=== PATIENT | male | born 1960 | race Caucasian/White ===

== ENCOUNTER → 2024-01-25 14:13 | Outpatient (REF) | payer OTHER, SELFPAY ==
[2024-01-25 15:39] LABS: PSA, Total - Diagnostic < 0.06 ng/ml (0.0-4.0)
== END ==
LOC: REG 14:13
PROVIDERS: ATTENDING PHYSICIAN Specialist
DX: C61 Malignant neoplasm of prostate (principal); N39.0 Urinary tract infection, site not specified
CPT/HCPCS: 36415; 84153

== ENCOUNTER → 2024-02-11 12:38 | Outpatient (REF) | payer OTHER, SELFPAY | LOC: CLAB 12:38 | PROVIDERS: ATTENDING PHYSICIAN Specialist | DX: N39.0 Urinary tract infection, site not specified (principal) | CPT/HCPCS: 87086 ==

== ENCOUNTER → 2024-04-29 12:13 | Outpatient (REF) | payer OTHER, SELFPAY ==
[2024-04-29 13:57] LABS: PSA, Total - Diagnostic < 0.06 ng/ml (0.0-4.0)
== END ==
LOC: REG 12:13
PROVIDERS: ATTENDING PHYSICIAN Specialist
DX: C61 Malignant neoplasm of prostate (principal)
CPT/HCPCS: 36415; 84153

== ENCOUNTER → 2024-07-30 09:10 | Outpatient (REF) | payer OTHER, SELFPAY ==
[2024-07-30 09:54] LABS: % Basophils 0.8 % (0-2); % Eosinophils 1.9 % (0-6); % Immature Granulocytes 0.4 % (0-0.5); % Lymphocytes 22.5 % (20.5-51.1); % Monocytes 8.3 % (1.7-9.3); % Neutrophils 66.1 % (42.2-75.2); Absolute Basophils 0.1 10^3/uL (0-0.2); Absolute Eosinophils 0.2 10^3/uL (0-0.7); Absolute Lymphocytes 1.7 10^3/uL (1.2-3.4); Absolute Monocytes 0.6 10^3/uL (0.1-0.6); Absolute Neutrophils 5.1 10^3/uL (1.4-6.5); Hematocrit 42.8 % (39.0-52.0); Hemoglobin 13.5 g/dL (13.0-18.0); Mean Corp Hgb Conc. 31.5 g/dL (33.0-37.0); Mean Corpuscular Volume 82.3 fL (80.0-94.0); Mean Platelet Volume 10.8 fL (7.4-10.4); Nucleated Red Blood Cells % 0 % (-); Platelet Count 218 10^3/uL (130-400); Red Cell Dist. Width 15.8 % (11.5-14.5); White Blood Cell Count 7.8 10^3/uL (4.8-10.8)
[2024-07-30 12:26] LABS: ALT (SGPT) 23 U/L (0-50); AST (SGOT) 31 U/L (17-59); Albumin 4.1 g/dl (3.5-5.0); Alkaline Phosphatase 112 U/L (38-126); Blood Urea Nitrogen 24 mg/dl (9-20); Calcium 9.9 mg/dl (8.4-10.2); Carbon Dioxide 24 mmol/L (22-30); Chloride 104 mmol/L (98-107); Glucose 107 mg/dl (70-99); HDL Cholesterol 56 mg/dl; LDL Cholesterol, Calculated 71 mg/dl; Potassium 4.5 mmol/L (3.5-5.1); Sodium 143 mmol/L (135-145); Total Bilirubin 1.1 mg/dl (0.2-1.3); Total Cholesterol 142 mg/dl (50-199); Total Protein 6.9 g/dl (6.3-8.2); Triglyceride 77 mg/dl (10-149); Very Low Density Lipoprotein 15 mg/dl (0-30); eGFR > 60.00
[2024-07-30 12:41] LABS: Glycohemoglobin (HgbA1c) 5.9 % (4.0-5.6)
[2024-07-30 13:24] LABS: PSA, Total - Diagnostic 0.17 ng/ml (0.0-4.0)
== END ==
LOC: REG 09:10
PROVIDERS: ATTENDING PHYSICIAN Physician Assistant; REFERRING PHYSICIAN Specialist
DX: R73.03 Prediabetes (principal); I25.118 Atherosclerotic heart disease of native coronary artery with other forms of angina pectoris; E78.5 Hyperlipidemia, unspecified; I10 Essential (primary) hypertension; D64.9 Anemia, unspecified
CPT/HCPCS: 36415; 80053; 80061; 83036; 84153; 85025

== ENCOUNTER → 2024-09-04 16:14 | Outpatient (REF) | payer OTHER, SELFPAY ==
[2024-09-04 17:52] LABS: PSA, Total - Diagnostic 0.35 ng/ml (0.0-4.0)
== END ==
LOC: REG 16:14
PROVIDERS: ATTENDING PHYSICIAN Specialist; FAMILY PHYSICIAN Family Medicine
DX: C61 Malignant neoplasm of prostate (principal)
CPT/HCPCS: 36415; 84153

== ENCOUNTER → 2024-10-09 17:15 | Outpatient (REF) | payer OTHER, SELFPAY ==
[2024-10-09 18:30] LABS: PSA, Total - Diagnostic 0.07 ng/ml (0.0-4.0)
== END ==
LOC: REG 17:15
PROVIDERS: ATTENDING PHYSICIAN Specialist; FAMILY PHYSICIAN Family Medicine
DX: C61 Malignant neoplasm of prostate (principal)
CPT/HCPCS: 36415; 84153

== ENCOUNTER → 2024-10-28 08:34 | Outpatient (REF) | payer OTHER, SELFPAY ==
--- NOTE | 2024-10-28 09:31 | CARDSERVDEF ---
Echocardiogram with Definity completed after protocol screening completed. Allergies verified.
Patent IV site: __new start 22P LH___
IV site flushed with 0.9% NaCl pre and post administration.
Diluted bolus method utilized to enhance visualization of ventricular baltazar.
Total volume given: __3.0 and 2.5__ mL under direction echosonographer,
here for stress echo, walking on treadmill, images pre and post.
site dcd at completion of test.
Patient tolerated all procedures well without complications.
== END ==
LOC: RCS 08:34
PROVIDERS: ATTENDING PHYSICIAN Internal Medicine Cardiovascular Disease; FAMILY PHYSICIAN Family Medicine
DX: Z95.5 Presence of coronary angioplasty implant and graft (principal)
CPT/HCPCS: 93017; 93350; Q9957

== ENCOUNTER 2024-11-06 16:19 | Inpatient (IN) | payer OTHER, MEDICARE, SELFPAY ==
[2024-11-06 12:02] VITALS: BP 170/103
[2024-11-06 12:20] VITALS: BP 165/95; BMI 38.8
--- NOTE | 2024-11-06 12:20 | EDRN ---
Pt states he had awoke at 5:00 am w/ floaters across his R eye visual field. Pt went to work and developed a prado spot in upper L visual field of R eye.
--- NOTE | 2024-11-06 12:28 | EDRN ---
Yuri Ayala PA in room w/ pt at this time.
[2024-11-06 12:34] LABS: % Basophils 0.3 % (0-2); % Immature Granulocytes 0.3 % (0-0.5); % Neutrophils 67.4 % (42.2-75.2); Absolute Eosinophils 0.1 10^3/uL (0-0.7); Absolute Monocytes 0.7 10^3/uL (0.1-0.6); Absolute Neutrophils 5.8 10^3/uL (1.4-6.5); Hemoglobin 13.5 g/dL (13.0-18.0); Mean Corp Hgb Conc. 31.4 g/dL (33.0-37.0); Mean Corpuscular Hgb 26.4 pg (27.0-31.0); Mean Platelet Volume 10.1 fL (7.4-10.4); Nucleated Red Blood Cells % 0 % (-); Platelet Count 215 10^3/uL (130-400); Red Blood Cell Count 5.12 10^6/uL (4.70-6.10); Red Cell Dist. Width 14.6 % (11.5-14.5); White Blood Cell Count 8.7 10^3/uL (4.8-10.8)
[2024-11-06 12:44] LABS: Erythrocyte Sed Rate 23 mm/hour (0-20)
[2024-11-06 12:50] LABS: Blood Urea Nitrogen 19 mg/dl (9-20); Calcium 9.5 mg/dl (8.4-10.2); Carbon Dioxide 27 mmol/L (22-30); Chloride 104 mmol/L (98-107); Estimated Creatinine Clearance 83 ml/min; Glucose 104 mg/dl (70-99); HDL Cholesterol 51 mg/dl; LDL Cholesterol, Calculated 62 mg/dl; Sodium 141 mmol/L (135-145); Total Cholesterol 129 mg/dl (50-199); Triglyceride 81 mg/dl (10-149); Very Low Density Lipoprotein 16 mg/dl (0-30); eGFR > 60.00
--- NOTE | 2024-11-06 12:51 | ED.GENMED ---
History of Present Illness
General
Chief Complaint: Visual Problem
Source: patient
Time Seen by Provider: 11/06/24 12:09
History of Present Illness
History of Present Illness:
64-year-old male with past medical history of previous myocardial infarction, hypertension, hyperlipidemia, prostate cancer presenting to the emergency department for evaluation after he was seen at the dialysis technician office this morning after he
awoke yesterday at 7:30 AM with right eye visual disturbance describing the visual disturbance to be a angulated area of roe/black at the superior medial visual field of the right eye. Patient states that when he closes his eye it is more of a
yellowish color to the same area. He notes that this visual disturbance has been constant since 7:30 AM yesterday and has not changed. Patient takes a daily 81 mg aspirin combined with high-dose statin and Jardiance. He does report good
compliance with this. No other blood thinners. Denies any other symptoms.
Past History
Past History
ED Past Medical History: Cancer, HTN, Hypercholesterolemia, MD and Other (BPH); Negative CAD
ED Past Surgical History: Appendectomy, Orthopedic and Urological
Social History
Tobacco: Non-smoker
Alcohol: Occasional
Drug: None
Personal:
Living: with family
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
Family History
Family History: Hypertension
Review of Systems
Review of Systems
All Other Systems: ROS reviewed and negative except as documented in HPI and ROS
Phy Exam
Physical Exam
Physical Exam:
GENERAL: Alert , in no apparent distress
EYE: pupils equal and reactive, clear conjunctiva
NECK: Supple
ENT: o/p clr, mmm.
CARDIAC: Regular rate and rhythm .
LUNGS: Clear breath sounds bilaterally, no acute respiratory distress, no wheezes/rales/rhonchi
NEUROLOGICAL: Alert and oriented x 3, NOLAN x 4, no sensory deficits, no aphasia, no dysarthria, no dysmetria, ambulates with steady gait
SKIN: Warm and dry, skin intact.
MUSCULOSKELETAL: No edema, well perfused.
PSYCH: Normal and appropriate interaction.
Scores
Heart Failure Risk
Heart Failure Risk Score: Not Applicable
Heart Score for Chest Pain Patients
STEMI patient?: Not applicable
Withdrawal Assessment of Alcohol
Withdrawal Assessment Completed?: Not applicable
Course
Orders/Labs/Results
Orders:
Orders
11/06/24 12:10
Electrocardiogram (*1) Urgent
Reason for Study: TIA/Stroke
EKG- Treatment ONCE
11/06/24 12:25
Basic Metabolic Panel Urgent
CRP [C-Reactive Protein] Urgent
Complete Blood Count/With Diff Urgent
ESR [Erythrocyte Sed Rate] Urgent
Hemoglobin A1c [Glycohemoglobin (HgbA1c)] Urgent
Lipid Profile [Cardiovascular Evaluation] Urgent
11/06/24 12:41
CT Head & Neck Angio W/wo IV Urgent
Comment:
Reason For Exam: known right central retinal artery occlusion
CT Head W/o Iv Contrast Urgent
Comment:
Reason For Exam: known right central retinal artery occlusion
11/06/24 12:43
Diphenhydramine [Benadryl] 50 mg IV NOW STA
Hydrocortisone Sod Succinate [Solu-Cortef] 200 mg IV NOW STA
11/06/24 Dinner
1800 calorie (15 carb) Diabetic
At Your Request: Full Participation
Diabetic Diet: Cholesterol Lowering
11/06/24 15:05
MR Brain Without Contrast Routine
Comment:
Reason For Exam: Visual impairment
OK for patient to be off Cardiac Monitoring for MRI: No
Recent pill cam endoscopy?: No
11/06/24 15:06
Clopidogrel Bisulfate [Plavix] 75 mg PO NOW STA
11/06/24 15:48
Admit/Transfer Patient As Directed
Co-Sign Provider:
Level of Care: Inpatient admission
Assign to:: Telemetry
Physician / Group: Iliana Cage
Diagnosis: eye central retinal artery occlusion, 70% or greater stenosis on bilateral
Reason for Telemetry: CVA/TIA
Date to Stop Telemetry: 11/09/24
Time to Stop Telemetry: 11:00
Reason for Hospitalization: eye central retinal artery occlusion, 70% or greater stenosis on bilateral
Expected length of stay greater than two midnights?: Yes
ELOS- Estimated Length of Stay in days: 3
I certify the patient meets the requirements for IP care: Yes
PRN Pain Medication Management As Directed
May give lesser potent ordered pain med per pt: Yes
preference::
Protocol:: Medication orders for pain may be administered in a
manner that supports deferring to patient preference
when the pt is:
- Requesting an ordered lesser potent pain medication.
Least to most potent pain medications are defined
as: acetaminophen < NSAID < tramadol < opioids
(morphine, oxycodone, hydromorphone).
- Requesting a lesser dose of the same medication IF
ORDERED.
- Requesting a less intrusive route of administration
if both routes are prescribed by the provider (PO <
IV).
11/06/24 15:50
Code Status As Directed
Resuscitation Status: Full Code
11/06/24 16:00
Pramipexole [Mirapex] 0.125 mg PO NOW ONE
11/06/24 18:11
Atorvastatin [Lipitor] 40 mg PO QPM
Bicalutamide [Casodex] 50 mg PO QPM
Metoprolol Xl [Toprol Xl] 50 mg PO QPM
11/06/24 18:11
NEUROLOGY CONSULT Routine
Consulting Provider: Jeanne Patricio
Was physician already notified: Yes
Vascular Surgery Consult Routine
Consulting Provider: Oliver Rea
Was physician already notified: Yes
Ferritin Routine
Transferrin [S] Routine
Activity As Directed
Activity Level: Out of Bed-Early Mobility
Pneumatic Compression Sleeves As Directed
Type: Knee high
Vital Signs As Directed
Frequency: Per unit guidelines
DX Deep Vein Thrombosis Video Routine
11/07/24 06:47
Basic Metabolic Panel IN AM
Complete Blood Count/No Diff IN AM
11/07/24 08:00
Aspirin Chewable [Low Strength Aspirin] 81 mg PO DAILY
Dapagliflozin [Farxiga] 10 mg PO DAILY
Finasteride [Proscar] 5 mg PO Q48H
Multivitamin [Theragran] 1 tablet PO DAILY
Pantoprazole [Protonix] 40 mg PO DAILY
Pramipexole [Mirapex] 0.125 mg PO DAILY
tadalafil See Dose Instructions PO DAILY
11/08/24 06:37
Basic Metabolic Panel IN AM
Complete Blood Count/No Diff IN AM
11/08/24 08:00
Ferrous Sulfate [Feosol] 325 mg PO Q48H
semaglutide (weight loss) [Wegovy] 0.5 mg SC SA
Abnormal Lab Results
11/06/24
12:25
MCH 26.4 L pg
(27.0-31.0)
MCHC 31.4 L g/dL
(33.0-37.0)
RDW 14.6 H %
(11.5-14.5)
Absolute Monos (auto) 0.7 H 10^3/uL
(0.1-0.6)
ESR 23 H mm/hour
(0-20)
Glucose 104 H mg/dl
(70-99)
Hemoglobin A1c 5.7 H %
(4.0-5.6)
C-Reactive Protein 20.50 H mg/L
(0.0-10.00)
11/06/24 12:25
11/06/24 12:25
Vital Signs
Initial and Last Documented VS:
Initial Vital Signs
Temp Pulse Resp BP Pulse Ox
97.7 F 79 18 170/103 97
11/06/24 12:02 11/06/24 12:02 11/06/24 12:02 11/06/24 12:02 11/06/24 12:02
Last Documented Vital Signs
Temp Pulse Resp BP Pulse Ox
97.9 F 97 16 170/94 95
11/08/24 15:45 11/08/24 15:45 11/08/24 15:45 11/08/24 15:45 11/08/24 15:45
MDM/Problems Addressed
MDM/Problems Addressed:
64-year-old male presenting to the emergency department for evaluation after being diagnosed with right sided central retinal artery occlusion by ophthalmology earlier today. Symptoms have already been ongoing for at least greater than 24 hours so
patient is not a thrombectomy or TNK candidate. Patient is on a daily 81 mg aspirin and maxed out on a statin. Patient may need to have increased aspirin and temporary Plavix dosing. Will discuss with neurology for further evaluation. Anticipate
need for further imaging such as CTA of the head and neck which may alter patient's treatment plan if there is significant stenosis within the vasculature of the neck. Disposition pending
Chronic conditions affecting care: DM and HTN
*Radiology
Radiology exam reviewed: radiology read reviewed
*Pulse Oximetry
Patient hypoxic: no
*EKG
Interpreted by ED Provider?: Yes
Heart Rate: 73
Rate: normal
Rhythm: sinus
Ischemia: other (old inferior infarct)
*Identity Management Consultant Interpretation
Rate: normal
Rhythm: sinus
*Critical Care Note
Total Time (30-74mins, 75-104mins- exclusive of procedures): Not Applicable
Patient Management
Discussion with other providers: Hospitalist, Roll Shop Supervisor and Radiologist
Escalation/DeEscalation of care consider admission/obs:
Case discussed with neurology who recommends CTA of the head and neck. They will consult on the patient.
Notified by radiology that patient has no acute intracranial findings however there is heavily calcified carotid bulb plaque on each side with greater than 70% stenosis as well. Neurology notified of these findings. Vascular to be notified of
these findings So they can consult on the patient. Hospitalist team accepts for continued evaluation and treatment.
ED Attending Note
-
Portions of this chart may have been created with voice recognition software.� Occasional wrong word or��sound alike� substitutions may have occurred due to the inherent limitations of voice recognition software.
Discharge Plan
Departure
Patient Disposition: Admit
Date of Disposition: 11/06/24
Time of Disposition: 14:59
Presentation/result/management discussed w/ accepting MD/DO: Hospitalist
Discharge Problem:
Central retinal artery occlusion of right eye
Interventions
Interventions:
*Risk Screen - Suicide Last Done: 11/06/24 12:20
*General Assessment Last Done: 11/06/24 12:20
*Neglect/Abuse Screening Last Done: 11/06/24 12:20
ED- Fall Risk Assessment Last Done: 11/06/24 12:20
*ED COVID-19 Vaccine History Last Done: 11/06/24 12:20
*Nursing Disposition Last Done: 11/06/24 17:59
ED-EENT Assessment Last Done: 11/06/24 13:55
ED- Neurological Assessment Last Done: 11/06/24 17:15
ED Swallowing Screen Last Done: 11/06/24 12:43
Discharge Date and Time
Discharge Date/Time: 11/06/24 18:00
[2024-11-06 13:00] VITALS: BP 153/90
[2024-11-06] MEDS: BENADRYL 50 MG IV (13:00)
[2024-11-06] MEDS: SOLU-CORTEF 200 MG IV (13:00)
[2024-11-06 13:10] VITALS: BP 153/85
[2024-11-06 14:23] LABS: Glycohemoglobin (HgbA1c) 5.7 % (4.0-5.6)
--- NOTE | 2024-11-06 14:48 | CON.NEURO ---
Consultation
Order
Date of Consultation: 11/06/24
Requesting Provider: Cory Ayala PA-C
Reason for Consult: R BRAO
Neurology Consultation Note.
HPI: This is a 64-year-old right-handed man who presented to [facility] on 11/06/2024 with visual symptoms. According to the patient he developed a sensation as 'something funny, like something moving,' in the median right upper
field in his right eye around 7:30-8:00 AM, a spot appeared, causing concern. The patient sought evaluation from an eye doctor and was referred to [facility], where he was diagnosed with the R BRAO. Mr. Abreu states that he has been
compliant with his antiplatelet therapy. No reports of headaches, motor, sensory, speech or language dysfunction.
He reports chronic frequent urge to move his legs worse in the evening.
ER VS: 140/78-170/103, 79, afebrile.
EKG: NSR, QTc Int : 429 ms
PDMP: none
Labs: CRP�20.50(0.0-10.00), ESR�23, glucose�104, hemoglobin A1c�5.7
CT head wo contrast-official report pending
CTA head/neck bilateral ICA stenosis (around 70%) official report is pending
PMH: Prostate cancer, iron deficiency, CAD, , HTN, DLP, MAGDI, ED, BMI 38.8 on Wegovy,
PSH:robotic prostatectomy, artificial urinary sphincter(6 weeks ago)
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
FH: Prostate cancer, coronary artery disease,
All: Sulfas, meperidine, iodine, ramipril,
ROS:Constitutional: Negative. Negative for chills, fever and unexpected weight change.
HENT: Negative for ear pain, hearing loss, tinnitus and trouble swallowing.
Eyes: Positive for visual disturbance.
Respiratory: Negative for cough, choking and shortness of breath.
Cardiovascular: Negative for chest pain, palpitations and leg swelling.
Gastrointestinal: Negative for abdominal pain and vomiting.
Endocrine: Negative. Negative for cold intolerance.
Genitourinary: Negative for dysuria, flank pain and urgency.
Musculoskeletal: Negative for back pain, gait problem, neck pain and neck stiffness.
Skin: Negative for rash.
Allergic/Immunologic: Negative. Negative for immunocompromised state.
Neurological: Positive for urge to move his legs in the evening,
Psychiatric/Behavioral: Negative for behavioral problems, confusion and hallucinations.
General: Well developed. In no acute distress.
Cardio: Regular rate and rhythm without murmur. Extremities are without cyanosis or edema.
Neuro:
Mental Status: Alert, oriented to person, place, and date. Normal attention and recall. Good fund of knowledge. Follows complex requests across the midline. Comprehension, naming, and repetition intact. Immediate and delayed recall 3/3.
Cranial Nerves: . Pupils are equally round and reactive to light. EOMs full. Visual otto full to confrontation. No ptosis. No nystagmus. V1-V3 intact to light touch and pinprick bilaterally, symmetric. Face symmetric. Normal hearing AU.
The palate elevated well. SCMs and traps 5/5. Tongue midline. No dysarthria.
Motor: Normal bulk and tone. No pronator or arm drift. Strength 5/5 throughout. No clonus.
Reflexes: 2+ throughout the upper extremities and knees. 2/2 in AJs. Plantar responses flexor bilaterally.
Sensory: Normal pinprick, vibration and JPS.
Coordination: No dysmetria or tremor.
Gait: deferred
Assessment and Plan:
I. R BRAO
II. Severe BL ICA stenosis
III.RLS
-Fall precaution
-Please obtain carotid Doppler ultrasound
-Brain MRI without anu
-Ophthalmology consult
-Continue aspirin 81 mg once a day and Plavix 75 mg once a day
-Please check LDL, ferritin, transferrin saturation
-Start Mirapex 0. 125 mg 3 hours before bedtime. -Moderate regular exercise, reduce caffeine intake, regular walking, bicycling, soaking the affected limbs, and leg massage, including pneumatic compression.
-Supplemental iron if ferritin is < 50 ng/mL or transferrin saturation is < 20%
-Avoid medications, known to worsen RLS symptoms (dopamine antagonists, antihistamines, tricyclic antidepressants and SSRIs/SSRIs)
-Continue Lipitor 80 mg once a day
-DVT prophylaxis.
I personally reviewed all radiology and labs along with past medical records pertinent to current medical problems. Total time spent in patient care is 60 minutes.
Thank you for allowing us to participate in the care of this patient. We will continue to follow. Please do not hesitate to contact us with any questions or concerns.
Subjective/Objective
Subjective Data
Date of Service: November 06, 2024
Objective Data
Vital Signs
Temp Pulse Resp BP Pulse Ox
36.5 C 77 12 153/85 97
11/06/24 12:02 11/06/24 13:15 11/06/24 13:15 11/06/24 13:10 11/06/24 13:45
Lab Results
11/06/24 12:25
11/06/24 12:25
Sodium 141 mmol/L (135-145) 11/06/24 12:25
Potassium 4.0 mmol/L (3.5-5.1) 11/06/24 12:25
BUN 19 mg/dl (9-20) 11/06/24 12:25
Glucose 104 mg/dl (70-99) H 11/06/24 12:25
Calcium 9.5 mg/dl (8.4-10.2) 11/06/24 12:25
LDL Cholesterol, Calc 62 mg/dl 11/06/24 12:25
Patient Allergies
Iodinated Contrast Media Allergy (Verified 11/06/24 12:02)
Hives
Sulfa (Sulfonamide Antibiotics) Allergy (Verified 11/06/24 12:02)
vomiting
sulfisoxazole Allergy (Verified 11/06/24 12:02)
vomiting
meperidine [Meperidine] Adverse Reaction (Verified 11/06/24 12:02)
'difficulty waking up'
Medications
-
Home Medications
�Medication �Instructions �Recorded
ferrous sulfate 325 mg (65 mg 325 mg PO Q48H Anemia/supplement 08/03/22
iron) tablet (Iron (ferrous
sulfate))
aspirin 81 mg chewable tablet 81 mg PO DAILY #0 tabs 08/04/22
atorvastatin 80 mg tablet 80 mg PO QPM #90 tabs 08/04/22
empagliflozin 25 mg tablet 25 mg PO DAILY 08/31/23
(Jardiance)
metoprolol succinate 50 mg 50 mg PO QPM 08/31/23
tablet,extended release 24 hr
naproxen sodium 220 mg tablet 220 mg PO DAILY 08/31/23
(Aleve)
tramadol 50 mg tablet 50 mg PO TID PRN severe pain #10 09/05/23
tabs
Vital Signs and Labs
-
Vital Signs and Labs:
Vital Signs
Temp Pulse Resp BP Pulse Ox
36.5 C 77 12 153/85 97
11/06/24 12:02 11/06/24 13:15 11/06/24 13:15 11/06/24 13:10 11/06/24 13:45
Lab Results
11/06/24 12:25
11/06/24 12:25
Sodium 141 mmol/L (135-145) 11/06/24 12:25
Potassium 4.0 mmol/L (3.5-5.1) 11/06/24 12:25
BUN 19 mg/dl (9-20) 11/06/24 12:25
Glucose 104 mg/dl (70-99) H 11/06/24 12:25
Calcium 9.5 mg/dl (8.4-10.2) 11/06/24 12:25
LDL Cholesterol, Calc 62 mg/dl 11/06/24 12:25
Home Medications
-
Home Medications
ferrous sulfate 325 mg (65 mg iron) tablet (Iron (ferrous sulfate)) 325 mg PO Q48H Anemia/supplement 08/03/22
aspirin 81 mg chewable tablet 81 mg PO DAILY #0 tabs 08/04/22
atorvastatin 80 mg tablet 80 mg PO QPM #90 tabs 08/04/22
empagliflozin 25 mg tablet (Jardiance) 25 mg PO DAILY 08/31/23
metoprolol succinate 50 mg tablet,extended release 24 hr 50 mg PO QPM 08/31/23
naproxen sodium 220 mg tablet (Aleve) 220 mg PO DAILY 08/31/23
tramadol 50 mg tablet 50 mg PO TID PRN severe pain #10 tabs 09/05/23
--- NOTE | 2024-11-06 15:03 | HPS.HSE ---
Family Physician
-
Family Physician: Yolande Martinez
Chief Complaint
-
Visual disturbance right eye
History of Present Illness
Patient is a 64-year-old male with past medical history significant for hypertension, hyperlipidemia, CAD, BPH and hx prostate cancer who presented to [facility] ED for evaluation of visual disturbance in right eye for past 2 days. Patient states
yesterday when he woke up he noticed angulated area of roe/black at the superior medial visiual field of right eye. Patient reports when eye is closed it is more of a yellowish/tanish color to same field of vision. He states he thought there was
improvement in sight yesterday evening but when he woke today it was the same. Yesterday he saw opthamology that did not have concerns. When he woke with continued disturbance today he sought a second opinion and was referred to ED for evaluation
and treatment. Patient denies any lightheadedness, weakness, numbness or tingling. Denies any fever, chills, chest pain, cough, or palpitations.
Medical History
Past Medical History
Past Medical History: Reports Other
Additional Past Medical History:
hypertension
hyperlipidemia
CAD
BPH
morbid obesity
hx prostate cancer
Past Surgical History: Reports Other
Additional Past Surgical History:
cardiac stent (07/2022)
appendectomy
urolume urethral stent (1997)
robotic radical prostatectomy and left LND (09/05/2023)
uroplasty (12/2023)
Social History
Tobacco: Non-smoker
Alcohol: None
Drug: None
Personal:
Living: With Family
Employment: Employed
Family History
Family History: Not pertinent
Allergies / Home Medications
Allergies reflects when Allergies were last updated in [facility].
Home Medications with original date entered in [facility]
Allergy/Medication List:
Allergies
Allergy/AdvReac Type Severity Reaction Status Date / Time
Iodinated Contrast Media Allergy Hives Verified 11/06/24 12:02
Sulfa (Sulfonamide Allergy vomiting Verified 11/06/24 12:02
Antibiotics)
sulfisoxazole Allergy vomiting Verified 11/06/24 12:02
meperidine [Meperidine] AdvReac 'difficulty Verified 11/06/24 12:02
waking up'
Home Medications
ferrous sulfate 325 mg (65 mg iron) tablet (Iron (ferrous sulfate)) 325 mg PO Q48H Anemia/supplement 08/03/22
metoprolol succinate 50 mg tablet,extended release 24 hr 50 mg PO QPM Heart Disease/BP 08/31/23
naproxen sodium 220 mg tablet (Aleve) 220 mg PO DAILY pain 08/31/23
aspirin 81 mg chewable tablet 81 mg PO DAILY Blood Pressure 11/06/24
atorvastatin 40 mg tablet (Lipitor) 40 mg PO QPM High Cholesterol 11/06/24
bicalutamide 50 mg tablet 50 mg PO QPM prostate cancer 11/06/24
dutasteride 0.5 mg capsule 0.5 mg PO Q48H Urinary Issue 11/06/24
empagliflozin 10 mg tablet (Jardiance) 10 mg PO DAILY Diabetes 11/06/24
omeprazole 20 mg tablet,delayed release 20 mg PO DAILY Gastrointestinal Issue 11/06/24
semaglutide (weight loss) 0.5 mg/0.5 mL subcutaneous pen injector (Wegovy) 0.5 mg SC SA weight loss 11/06/24
tadalafil 5 mg tablet 5 mg PO DAILY Urinary Issue 11/06/24
therapeutic multivitamin 1 tab PO DAILY Supplement 11/06/24
Review of Systems
-
History Source: Patient
Constitutional: Reports No Symptoms
EENT: Reports Other (right eye with visual disturbance)
Respiratory: Reports No Symptoms
Cardiac: Reports No Symptoms
Abdomen/GI: Reports No Symptoms
: Reports No Symptoms
Musculoskeletal: Reports No Symptoms
Skin: Reports No Symptoms
Neurological: Reports No Symptoms
Endocrine: Reports No Symptoms
Hematologic/Lymphatic: Reports No Symptoms
Psych: Reports No Symptoms
Physical Exam
Vital Signs
Vital Signs
Temp Pulse Resp BP Pulse Ox
97.7 F 77 12 153/85 97
11/06/24 12:02 11/06/24 13:15 11/06/24 13:15 11/06/24 13:10 11/06/24 13:45
Physical Exam
General: Well Developed, Well Nourished, No Apparent Distress, Comfortable and Conversant
HEENT: NormoCephalic, Moist mucous membranes, Atraumatic, PERRLA, [place] Conjunctivae, Nose Appears Normal and Ears Appear Normal
Respiratory: Clear and Non Labored Respirations
Cardiac: S1/S2 and Regular Rhythm; No Murmur, Rub or Gallop
Breast: Deferred by me
GI: Soft, Non Tender and Normal Bowel Sounds; No Organomegaly
Rectal: Deferred by Provider
Genito-urinary: Deferred by me
Musculoskeletal: No Clubbing, No Cyanosis and No Edema
Skin: Warm and IV/Catheter Site; No Rash
Neuro: Awake, Alert and Nonfocal/grossly intact
Hematologic/Lymphatic: No Lymphadenopathy
Psych: Calm and Intact Judgment/Insight
Laboratory Results
-
11/06/24 12:25
11/06/24 12:25
Data Reviewed
-
CT Scan: Report Reviewed by me (Head CT and Head and Neck CTA)
Lab Data: Labs Reviewed by me (ESR 23, A1C 5.7, CRP 20.50)
Impression/Plan
-
IMPRESSION/PLAN:
#Right eye central retinal artery occlusion
Head CT: 1. No acute intracranial abnormalities appreciated.
2. Mild atrophy and mild chronic small vessel change.
Head/Neck CTA: 1. Heavily calcified plaque within both carotid bulbs, exact percent stenosis difficult to measure due to heavy arterial calcification, however greater than 70% stenosis is suspected on
each side. Consider carotid ultrasound for more accurate characterization of the degree of stenosis.
2. No intracranial arterial occlusion is appreciated.
3. Severe calcification of the visualized LAD. Please correlate with symptoms of and risk factors for coronary artery disease, with further workup as clinically appropriate.
4. Mild dilation of the ascending thoracic aorta, measuring 3.8 cm in transverse dimension.
- Admit to Med/Surg
- Carotid doppler US
- Brain MRI without anu
- Consult Neurology
- Consult Vascular
#Restless leg syndrome
- start Mirapex 0.125mg qPM
#hypertension
- continue metoprolol
#hyperlipidemia
#CAD
- continue aspirin, and atorvastatin
#Prediabetes
A1C 5.7
- continue Jardiance and semaglutide
#iron deficiency anemia
- continue ferrous sulfate
#BPH
Robotic Radical Prostatectomy and left LND (09/05/2023)
#morbid obesity due to excessive calories
affects all aspects of care
- encourage healthy balanced lifestyle of diet and exercise
- continue semaglutide
#hx prostate cancer
Robotic Radical Prostatectomy and left LND (09/05/2023)
- continue bicalutamide, dutasteride, and tadalafil
Code status: Full Code
DVT Prophylaxis: SCDs
[2024-11-06] MEDS: PLAVIX 75 MG PO (15:48)
--- NOTE | 2024-11-06 15:59 | W.PN.UPDATE ---
Update Note
Progress Note Update
This is an addendum to the H&P written by Armida Carvalho on 11/06/2024.� Patient seen and examined independently with CRAB FISHERMAN.
64-year-old male past medical history of CAD, hypertension, hyperlipidemia, prostate cancer presenting with visual disturbance with roe/black at the superior medial visual field of the right eye since yesterday morning.� He saw ophthalmology Dr.
Orin and diagnosed with right-sided central retinal artery occlusion earlier today.�
CTA head and neck shows greater than 70% stenosis bilaterally within both carotid bulbs.
Patient seen by neurology. Check MRI brain.� Check carotid ultrasound.� Continue aspirin and Plavix.� Check lipid panel, iron studies.� Neurology recommended pramipexole for restless leg syndrome.� Vascular surgery consulted.
[2024-11-06 18:15] VITALS: BP 165/91; BMI 37.5
[2024-11-06] MEDS: TOPROL XL 50 MG PO (19:42)
[2024-11-06] MEDS: LIPITOR 40 MG PO (19:43)
[2024-11-06] MEDS: CASODEX 50 MG PO (19:43)
[2024-11-06 23:27] VITALS: BP 113/68
[2024-11-07 07:15] VITALS: BP 148/84
[2024-11-07 07:16] LABS: Hematocrit 39.2 % (39.0-52.0); Hemoglobin 12.5 g/dL (13.0-18.0); Mean Corp Hgb Conc. 31.9 g/dL (33.0-37.0); Mean Corpuscular Hgb 26.4 pg (27.0-31.0); Mean Corpuscular Volume 82.9 fL (80.0-94.0); Mean Platelet Volume 10.9 fL (7.4-10.4); Platelet Count 225 10^3/uL (130-400); Red Blood Cell Count 4.73 10^6/uL (4.70-6.10); Red Cell Dist. Width 14.6 % (11.5-14.5); White Blood Cell Count 10.8 10^3/uL (4.8-10.8)
[2024-11-07 07:33] LABS: Blood Urea Nitrogen 20 mg/dl (9-20); Carbon Dioxide 24 mmol/L (22-30); Chloride 106 mmol/L (98-107); Estimated Creatinine Clearance 89 ml/min; Glucose 123 mg/dl (70-99); Potassium 3.9 mmol/L (3.5-5.1); Sodium 139 mmol/L (135-145); eGFR > 60.00
--- NOTE | 2024-11-07 07:57 | W.PN.HOSP.TC ---
Today's Communication/Plan
-
see PN
Assessment / Plan
Assessment / Plan
64yo M with PMHx of CAD, HTN, HLD, preDM, prostate CA came with 2 days of R eye prado spots, diagnosed with central retinal artery occlusion by office. Managed for CVA equivalent, found b/l carotid stenosis
A/P:
#R BRAO
ASA/Plavix/Statin
Brain MRI - no acute intracranial abnormality
HgbA1c 5.7%
Check TSH
LDL 62
neurochecks and NIH
Telemetry and Echo bubble study
Neurology consult
Vascular consult
ESR 23 - at this time no concerns for GCA with absent temporal tenderness
#b/l carotid stenosis 2/2 ASCVD
>70% on CTA suspected - radiology advised US carotids
Vasc consult
#Ascending aortic aneurism 3.9cm
outpatient monitoring with Echo by housing court judge advised
#CAD
STress echo done 10/28/24 - no regional wall motion abnormalities seen
#PreDM
#Obesity
advised to decrease calorie intake
#RLS
check iron studies
Start pramiprexole
DVT on SCDs
Full code
I have spent at least 59min reviewing chart, test resuklts, communicating with consultants and direct patient care
Anticipated Discharge: 24 - 48 hours
Subjective/Interval History
-
Date of Service: November 07, 2024
Objective Data
-
Labs:
Laboratory Results
11/07/24
06:47
WBC 10.8
Hgb 12.5 L
Hct 39.2
Plt Count 225
Sodium 139
Potassium 3.9
Chloride 106
Carbon Dioxide 24
BUN 20
Creatinine 1.2
Glucose 123 H
Calcium 9.0
Vital Signs:
Vital Signs
Temp Pulse Resp BP Pulse Ox
97.4 F 84 18 148/84 97
11/07/24 07:15 11/07/24 07:15 11/07/24 07:15 11/07/24 07:15 11/07/24 07:15
I&O
11/06/24 11/07/24 11/08/24
06:59 06:59 06:59
Intake Total 480 / 480
Balance 480 / 480
Review of Systems
-
History Source: Patient
All other systems: Reviewed and negative
EENT: Reports Other (prado spots on larteral vision field on R)
Physical Exam
-
General: No Apparent Distress
Respiratory: Clear to Auscultation
Cardiac: Regular Rhythm; Negative Murmur
GI: Soft, Nontender and Nondistended
Skin: Warm
Neuro: Awake, Alert, Oriented, AO x 3 and No Motor Deficits
Psych: Calm
[2024-11-07 07:59] LABS: Ferritin 23.1 ng/ml (17.9-464.0)
[2024-11-07 08:12] LABS: Hepatitis C Antibody Negative (Negative)
[2024-11-07] MEDS: THERAGRAN 1 TABLET PO (09:34)
[2024-11-07] MEDS: LOW STRENGTH ASPIRIN 81 MG PO (09:35)
[2024-11-07] MEDS: FARXIGA 10 MG PO (09:35)
[2024-11-07] MEDS: PROSCAR 5 MG PO (09:35)
[2024-11-07] MEDS: PEPCID 20 MG PO ×2 (09:35→20:01)
[2024-11-07] MEDS: PLAVIX 75 MG PO (09:35)
[2024-11-07 11:11] VITALS: BP 156/90
--- NOTE | 2024-11-07 11:24 | W.PN.NEURO.1 ---
Today's Communication / Plan
-
.
Subjective/Objective
Subjective Data
Date of Service: November 07, 2024
Neurology Follow Up Note.
Mr. Abreu endorses improvement of his visual symptoms. He continues to have a mild painless visual obscuration in upper median quadrant on the right.
Brain MRI (limited by artifact) showed no acute infarcts.
Labs: CRP�20.50(0.0-10.00), ESR�23, hemoglobin A1c�5.7, LDL 62, ferritin-23.
Carotid Doppler ultrasound�no evidence of hemodynamically significant stenosis
PMH: Prostate cancer, iron deficiency, CAD, , HTN, DLP, MAGDI, ED, BMI 38.8 on Wegovy
PSH:robotic prostatectomy, artificial urinary sphincter(6 weeks ago)
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
FH: Prostate cancer, coronary artery disease,
All: Sulfas, meperidine, iodine, ramipril,
ROS:Constitutional: Negative. Negative for chills, fever and unexpected weight change.
HENT: Negative for ear pain, hearing loss, tinnitus and trouble swallowing.
Eyes: Positive for visual disturbance.
Respiratory: Negative for cough, choking and shortness of breath.
Cardiovascular: Negative for chest pain, palpitations and leg swelling.
Gastrointestinal: Negative for abdominal pain and vomiting.
Endocrine: Negative. Negative for cold intolerance.
Genitourinary: Negative for dysuria, flank pain and urgency.
Musculoskeletal: Negative for back pain, gait problem, neck pain and neck stiffness.
Skin: Negative for rash.
Allergic/Immunologic: Negative. Negative for immunocompromised state.
Neurological: Positive for urge to move his legs in the evening,
Psychiatric/Behavioral: Negative for behavioral problems, confusion and hallucinations.
General: Well developed. In no acute distress.
Cardio: Regular rate and rhythm without murmur. Extremities are without cyanosis or edema.
Neuro:
Mental Status: Alert, oriented to person, place, and date. Normal attention and recall. Good fund of knowledge. Follows complex requests across the midline. Comprehension, naming, and repetition intact. Immediate and delayed recall 3/3.
Cranial Nerves: . Pupils are equally round and reactive to light. EOMs full. Visual otto full to confrontation. No ptosis. No nystagmus. V1-V3 intact to light touch and pinprick bilaterally, symmetric. Face symmetric. Normal hearing AU.
The palate elevated well. SCMs and traps 5/5. Tongue midline. No dysarthria.
Motor: Normal bulk and tone. No pronator or arm drift. Strength 5/5 throughout. No clonus.
Coordination: No dysmetria or tremor.
Gait: deferred
Assessment and Plan:
I. Probable R BRAO
II. Elevated CRP.
III. RLS
-Fall precaution
-Continue aspirin 81 mg once a day and Plavix 75 mg once a day for 3 weeks
-Continue Mirapex 0. 125 mg 3 hours before bedtime.
-Start iron sulfate
-Ophthalmology, rheumatology consult
-Follow up TTE. OP Holter monitoring.
-Continue Lipitor 80 mg once a day
-DVT prophylaxis.
-Outpatient neurology follow-up in 2-3 weeks.
I personally reviewed all radiology and labs along with past medical records pertinent to current medical problems. Total time spent in patient care is 35 minutes.
Thank you for allowing us to participate in the care of this patient. Please do not hesitate to contact us with any questions or concerns.
Objective Data
Vital Signs
Temp Pulse Resp BP Pulse Ox
36.3 C 80 19 156/90 98
11/07/24 11:11 11/07/24 11:11 11/07/24 11:11 11/07/24 11:11 11/07/24 11:11
Lab Results
11/07/24 06:47
11/07/24 06:47
Sodium 139 mmol/L (135-145) 11/07/24 06:47
Potassium 3.9 mmol/L (3.5-5.1) 11/07/24 06:47
BUN 20 mg/dl (9-20) 11/07/24 06:47
Glucose 123 mg/dl (70-99) H 11/07/24 06:47
Calcium 9.0 mg/dl (8.4-10.2) 11/07/24 06:47
LDL Cholesterol, Calc 62 mg/dl 11/06/24 12:25
Patient Allergies
Iodinated Contrast Media Allergy (Verified 11/06/24 12:02)
Hives
meperidine [Meperidine] Allergy (Verified 11/06/24 15:47)
'difficulty waking up'
Sulfa (Sulfonamide Antibiotics) Allergy (Verified 11/06/24 15:47)
vomiting
sulfisoxazole Allergy (Verified 11/06/24 15:47)
vomiting
Vital Signs and Labs
-
Vital Signs and Labs:
Vital Signs
Temp Pulse Resp BP Pulse Ox
36.3 C 80 19 156/90 98
11/07/24 11:11 11/07/24 11:11 11/07/24 11:11 11/07/24 11:11 11/07/24 11:11
Lab Results
11/07/24 06:47
11/07/24 06:47
Sodium 139 mmol/L (135-145) 11/07/24 06:47
Potassium 3.9 mmol/L (3.5-5.1) 11/07/24 06:47
BUN 20 mg/dl (9-20) 11/07/24 06:47
Glucose 123 mg/dl (70-99) H 11/07/24 06:47
Calcium 9.0 mg/dl (8.4-10.2) 11/07/24 06:47
LDL Cholesterol, Calc 62 mg/dl 11/06/24 12:25
Medications
-
Medications:
Generic Name Dose Route Start Last Admin
Trade Name Jacquelin GIRONN Reason Stop Dose Admin
Aspirin 81 mg 11/07/24 08:00 11/07/24 09:35
Aspirin 81 Mg Chewable Tablet PO 12/05/24 07:59 81 mg
DAILY KAREN Administration
Atorvastatin Calcium 80 mg 11/07/24 18:00
Atorvastatin (Lipitor) 80 Mg Tablet PO 12/05/24 17:59
QPM KAREN
Bicalutamide 50 mg 11/06/24 18:11 11/06/24 19:43
Bicalutamide 50 Mg Tablet PO 12/04/24 18:10 50 mg
QPM KAREN Administration
Clopidogrel Bisulfate 75 mg 11/07/24 08:00 11/07/24 09:35
Clopidogrel 75 Mg Tablet PO 12/05/24 07:59 75 mg
DAILY KAREN Administration
Dapagliflozin 10 mg 11/07/24 08:00 11/07/24 09:35
Dapagliflozin (Farxiga) 10 Mg Tablet PO 12/05/24 07:59 10 mg
DAILY KAREN Administration
Famotidine 20 mg 11/07/24 08:00 11/07/24 09:35
Famotidine 20 Mg Tablet PO 12/05/24 07:59 20 mg
BID KAREN Administration
Ferrous Sulfate 325 mg 11/08/24 08:00
Ferrous Sulfate 325 Mg Tablet PO 12/06/24 07:59
Q48H KAREN
Finasteride 5 mg 11/07/24 08:00 11/07/24 09:35
Finasteride 5 Mg Tablet PO 12/05/24 07:59 5 mg
Q48H KAREN Administration
Metoprolol Succinate 50 mg 11/06/24 18:11 11/06/24 19:42
Metoprolol 50 Mg Extended Release Tablet PO 12/04/24 18:10 50 mg
QPM KAREN Administration
Miconazole Nitrate 0 applic 11/07/24 10:23
Miconazole Powder Bottle TOPICAL 12/05/24 10:22
BID KAREN
Multivitamins Therapeutic 1 tablet 11/07/24 08:00 11/07/24 09:34
Multivitamin Tablet PO 12/05/24 07:59 1 tablet
DAILY KAREN Administration
Tadalafil 5 Mg Po 0 mg 11/07/24 08:00
Daily PO 12/05/24 07:59
DAILY KAREN
Non-Formulary Medication 0.5 mg 11/08/24 08:00
Semaglutide (Weight Loss) [Wegovy] SC 12/06/24 07:59
SA KAREN
Pramipexole Dihydrochloride 0.125 mg 11/07/24 08:00 11/07/24 09:40
Pramipexole 0.125 Mg Tablet PO 12/05/24 07:59 Not Given
DAILY KAREN
Sodium Chloride 0 flush 11/06/24 19:00
Sodium Chloride 0.9% (Flush) Syringe IV 12/04/24 18:59
PER PROTOCOL KAREN
Home Medications
-
Home Medications
ferrous sulfate 325 mg (65 mg iron) tablet (Iron (ferrous sulfate)) 325 mg PO Q48H Anemia/supplement 08/03/22
metoprolol succinate 50 mg tablet,extended release 24 hr 50 mg PO QPM Heart Disease/BP 08/31/23
naproxen sodium 220 mg tablet (Aleve) 220 mg PO DAILY pain 08/31/23
aspirin 81 mg chewable tablet 81 mg PO DAILY Blood Pressure 11/06/24
atorvastatin 40 mg tablet (Lipitor) 40 mg PO QPM High Cholesterol 11/06/24
bicalutamide 50 mg tablet 50 mg PO QPM prostate cancer 11/06/24
dutasteride 0.5 mg capsule 0.5 mg PO Q48H Urinary Issue 11/06/24
empagliflozin 10 mg tablet (Jardiance) 10 mg PO DAILY Diabetes 11/06/24
omeprazole 20 mg tablet,delayed release 20 mg PO DAILY Gastrointestinal Issue 11/06/24
semaglutide (weight loss) 0.5 mg/0.5 mL subcutaneous pen injector (Wegovy) 0.5 mg SC SA weight loss 11/06/24
tadalafil 5 mg tablet 5 mg PO DAILY Urinary Issue 11/06/24
therapeutic multivitamin 1 tab PO DAILY Supplement 11/06/24
[2024-11-07] MEDS: DESENEX/MITRAZOL/ZEASORB 1 APPLIC TOPICAL ×2 (12:00→20:04)
--- NOTE | 2024-11-07 13:52 | CON.VAS ---
Addendum entered and electronically signed by José Luis Suresh III, MD 11/07/24 21:15:
This patient was seen and examined with NIELS Sorenson. I agree with the history and physical exam as well as the assessment and plan. I have the following additions:
Right visual symptoms as described.
CT angiogram reviewed by me personally. I cannot accurately determine the degree of stenosis based on this study. There appears to be motion artifact right at the level of the carotid bifurcation on the right.
Carotid duplex reviewed from today which demonstrates velocity profiles consistent with less than 50% stenosis bilaterally.
I had a long conversation with the patient and his at bedside. I am recommending that we repeat cross-sectional imaging so that we can make accurate determinations of the degree of stenosis before making a plan. Continue antiplatelet therapy.
Will gambell back with him once the scan is complete.
Signed:
José Luis Suresh III, MD
[facility]
[phone] ([phone])
Original Note:
Consultation
Consultation Request
Date/Time Consultation Performed: 11/07/24
Requesting Provider: Hospitalist
Performing Provider: Caroline Goldberg NP-C for José Luis Suresh III, MD
Reason for Consultation: Right eye vision loss in setting of suspected right carotid stenosis
Medical History
-
Chief Complaint: Right eye upper field vision loss
History of Present Illness:
This is a 64-year-old male with significant past medical history for hypertension, hyperlipidemia, CAD, BPH and prostate cancer who presented to [facility] on 11/06/24 for evaluation of acute vision loss in right eye upper field for roughly the
past 3 days. Patient notes roughly 2 days ago he awoke and noticed decreased vision in the upper medial visual field of his right eye, which was painless. He then followed up with his life underwriter who was concerned for retinal artery occlusion
and recommended ED evaluation. CT angio head and neck was obtained which demonstrates roughly 70% stenosis of bilateral carotid arteries, however due to significant increased motion artifact exact narrowing cannot be determined. Patient denies
past medical history of stroke or stroke like symptoms. He denies ever experiencing visual losses or disturbances similar in the past, such as amaurosis
fugax. He endorses that it is appearing to improve but he still remains with some visual disturbance in the right upper eye field. Denies accompanying nausea, vomiting, fever, chills, unilateral weakness, aphasia, dysarthria, and paresthesia.
Denies ever seeing a vascular surgeon or requiring vascular surgical intervention. Denies claudication or rest pain.
Past Medical History
Past Medical History: CAD, HTN, NIDDM and Other (Hyperlipidemia, prostate cancer, BPH, obesity)
Past Surgical History: Cardiac (PCI with stent placement 08/17) and Urological (urolume urethral stent (1997), robotic radical prostatectomy and left LND (09/05/2023), uroplasty (12/2023))
Social History
Tobacco: Former Smoker
Alcohol: None
Drug: None
Personal:
Living: With Family
Allergies / Home Medications
Allergy/AdvReac Type Severity Reaction Status Date / Time
Iodinated Contrast Media Allergy Hives Verified 11/06/24 12:02
meperidine [Meperidine] Allergy 'difficulty Verified 11/06/24 15:47
waking up'
Sulfa (Sulfonamide Allergy vomiting Verified 11/06/24 15:47
Antibiotics)
sulfisoxazole Allergy vomiting Verified 11/06/24 15:47
�Medication �Instructions �Recorded �Confirmed �Type
ferrous sulfate 325 mg (65 mg 325 mg PO Q48H Anemia/supplement 08/03/22 11/06/24 History
iron) tablet (Iron (ferrous
sulfate))
metoprolol succinate 50 mg 50 mg PO QPM Heart Disease/BP 08/31/23 11/06/24 History
tablet,extended release 24 hr
naproxen sodium 220 mg tablet 220 mg PO DAILY pain 08/31/23 11/06/24 History
(Aleve)
aspirin 81 mg chewable tablet 81 mg PO DAILY Blood Pressure 11/06/24 11/06/24 History
atorvastatin 40 mg tablet (Lipitor) 40 mg PO QPM High Cholesterol 11/06/24 11/06/24 History
bicalutamide 50 mg tablet 50 mg PO QPM prostate cancer 11/06/24 11/06/24 History
dutasteride 0.5 mg capsule 0.5 mg PO Q48H Urinary Issue 11/06/24 11/06/24 History
empagliflozin 10 mg tablet 10 mg PO DAILY Diabetes 11/06/24 11/06/24 History
(Jardiance)
omeprazole 20 mg tablet,delayed 20 mg PO DAILY Gastrointestinal 11/06/24 11/06/24 History
release Issue
semaglutide (weight loss) 0.5 0.5 mg SC SA weight loss 11/06/24 11/06/24 History
mg/0.5 mL subcutaneous pen
injector (Wegovy)
tadalafil 5 mg tablet 5 mg PO DAILY Urinary Issue 11/06/24 11/06/24 History
therapeutic multivitamin 1 tab PO DAILY Supplement 11/06/24 11/06/24 History
Review of Systems
-
History Source: Patient
Constitutional: Reports No Symptoms
EENT: Reports Other (Vision loss at right eye upper visual field)
Respiratory: Reports No Symptoms
Cardiac: Reports No Symptoms
Vascular: Denies Leg Pain / Claudication, Numbness or Tingling
Abdomen/GI: Reports No Symptoms
: Reports No Symptoms
Musculoskeletal: Reports No Symptoms
Skin: Reports No Symptoms
Neurological: Reports Other (Right eye vision loss)
Endocrine: Reports No Symptoms
Physical Exam
Vital Signs
Temp Pulse Resp BP Pulse Ox
97.4 F 80 19 156/90 98
11/07/24 11:11 11/07/24 11:11 11/07/24 11:11 11/07/24 11:11 11/07/24 11:11
Lab Results
11/07/24 06:47
11/07/24 06:47
Physical Exam
General: No Apparent Distress
HEENT: Normocephalic, Anicteric and Atraumatic
Respiratory: Non Labored Respirations
Cardiac: Negative JVD
GI: Soft, Non Tender and Normal Bowel Sounds
Musculoskeletal: No Edema
Skin: Warm and Dry
Neuro: AO x 3
Psych: Calm
Pulses: Bilateral Dorsalis Pedis: +1
Assessment / Plan
-
Assessment: 64-year-old male with suspected right eye retinal occlusion in the setting of right carotid stenosis
Plan:
Given significant motion artifact cannot delineate with certainty degree of stenosis at either carotid artery, would recommend obtaining new CT angio scan of neck, patient has contrast dye allergy so will provide prophylactic medication and time
scan appropriately for tomorrow
Surgical plan pending results of repeat CTA neck
If carotid endarterectomy versus TCAR is recommended could possibly add onto the OR schedule for Sunday11/10/24
[2024-11-07 15:17] VITALS: BP 146/78
--- NOTE | 2024-11-07 15:36 | CM ---
Met with patient to obtain information for assessment. Patient stated that he lives with his and daughter in a 2 story home with five steps to enter with his and daughter. He described himself as independent with his ADLs, personal care,
dressing and bathing. 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 He is able to drive and transports himself to all of his appointments and does all of his shopping. 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
Patient has had VN services through in the past.
He has not been to a SNF.
Patient has a prescription plan and uses, [facility] on [address] for all of his medications.
Patient stated that he feels that he will be able to return home when cleared.
Plan: Case management will continue to follow and assist with discharge planning. Home when stable.
[2024-11-07] MEDS: LIPITOR 80 MG PO (18:19)
[2024-11-07] MEDS: TOPROL XL 50 MG PO (18:19)
[2024-11-07] MEDS: CASODEX 50 MG PO (18:19)
[2024-11-07 19:22] VITALS: BP 132/82
[2024-11-07] MEDS: MEDROL 32 MG PO (21:44)
[2024-11-07 23:52] VITALS: BP 133/82
[2024-11-08 03:13] VITALS: BP 117/70
[2024-11-08 07:00] VITALS: BP 135/94
[2024-11-08 07:02] LABS: Hematocrit 42.5 % (39.0-52.0); Hemoglobin 13.4 g/dL (13.0-18.0); Mean Corp Hgb Conc. 31.5 g/dL (33.0-37.0); Mean Corpuscular Hgb 26.6 pg (27.0-31.0); Mean Corpuscular Volume 84.3 fL (80.0-94.0); Mean Platelet Volume 10.6 fL (7.4-10.4); Platelet Count 233 10^3/uL (130-400); Red Blood Cell Count 5.04 10^6/uL (4.70-6.10); Red Cell Dist. Width 14.6 % (11.5-14.5); White Blood Cell Count 7.7 10^3/uL (4.8-10.8)
[2024-11-08 07:28] LABS: Blood Urea Nitrogen 22 mg/dl (9-20); Carbon Dioxide 24 mmol/L (22-30); Chloride 106 mmol/L (98-107); Estimated Creatinine Clearance 82 ml/min; Glucose 145 mg/dl (70-99); Potassium 4.5 mmol/L (3.5-5.1); Sodium 140 mmol/L (135-145); eGFR > 60.00
[2024-11-08] MEDS: LOW STRENGTH ASPIRIN 81 MG PO (08:37)
[2024-11-08] MEDS: PLAVIX 75 MG PO (08:38)
[2024-11-08] MEDS: PEPCID 20 MG PO (08:38)
[2024-11-08] MEDS: FARXIGA 10 MG PO (08:38)
[2024-11-08] MEDS: THERAGRAN 1 TABLET PO (08:38)
[2024-11-08] MEDS: FEOSOL 325 MG PO ×2 (08:38→13:41)
[2024-11-08] MEDS: DESENEX/MITRAZOL/ZEASORB 1 APPLIC TOPICAL (08:39)
[2024-11-08] MEDS: MEDROL 32 MG PO (10:24)
[2024-11-08] MEDS: BENADRYL 50 MG PO (11:18)
[2024-11-08 11:30] VITALS: BP 145/85
--- NOTE | 2024-11-08 12:03 | W.PN.HOSP.TC ---
Today's Communication/Plan
-
CTA repeated today - further mgmt based on results. If carotid intervention needed - will be planned for Mon
Assessment / Plan
Assessment / Plan
64yo M with PMHx of CAD, HTN, HLD, preDM, prostate CA came with 2 days of R eye prado spots, diagnosed with central retinal artery occlusion by office. Managed for CVA equivalent, found b/l carotid stenosis
A/P:
#R BRAO
ASA/Plavix/Statin
Brain MRI - no acute intracranial abnormality
HgbA1c 5.7%
Check TSH
LDL 62
neurochecks and NIH
Telemetry and Echo bubble study
Neurology consult: outpatient holter - patient will follow with his established roofing contractor
ESR 23 - at this time no concerns for GCA with absent temporal tenderness
Echo: no PFO
#b/l carotid stenosis 2/2 ASCVD
>70% on CTA suspected - radiology advised US carotids
CT angiogram reviewed by [facility]: cannot accurately determine the degree of stenosis based on this study. There appears to be motion artifact right at the level of the carotid bifurcation on the right.Carotid duplex reviewed from today which
demonstrates velocity profiles consistent with less than 50% stenosis bilaterally. Repeated CTA
#Ascending aortic aneurism 3.9cm
outpatient monitoring with Echo by roofing contractor advised
#CAD, stable
Stress echo done 10/28/24 - no regional wall motion abnormalities seen
#PreDM
#Obesity
advised to decrease calorie intake
#RLS
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
Start pramipexole
DVT on SCDs
Full code
I have spent at least 39min reviewing chart, test resuklts, communicating with consultants and direct patient care
Anticipated Discharge: Within 24 hours
Subjective/Interval History
-
Date of Service: November 08, 2024
Objective Data
-
Labs:
Laboratory Results
11/08/24
06:37
WBC 7.7
Hgb 13.4
Hct 42.5
Plt Count 233
Sodium 140
Potassium 4.5
Chloride 106
Carbon Dioxide 24
BUN 22 H
Creatinine 1.3
Glucose 145 H
Calcium 9.0
Vital Signs:
Vital Signs
Temp Pulse Resp BP Pulse Ox
97.9 F 90 18 145/85 98
11/08/24 11:30 11/08/24 11:30 11/08/24 11:30 11/08/24 11:30 11/08/24 11:30
I&O
11/07/24 11/08/24 11/09/24
06:59 06:59 06:59
Intake Total 480 / 480 2039
Balance 480 / 480 2039
Review of Systems
-
History Source: Patient
All other systems: Reviewed and negative
Neuro: Reports Other (prado spot, intermittent in R lateral field)
Physical Exam
-
General: No Apparent Distress
Respiratory: Clear to Auscultation
Cardiac: Regular Rhythm
Neuro: Awake, Alert, Oriented, AO x 3 and No Motor Deficits
Psych: Calm
[2024-11-08 14:06] LABS: TSH Reflex To Free T4 1.58 uIU/ml (0.47-4.68)
--- NOTE | 2024-11-08 14:31 | W.DCSUMMARY ---
Discharge Summary
Discharge Data
Date of Admission: 11/06/24
Date of Discharge: 11/08/24
-
Pending Results: No
Hospital Course
64yo M with PMHx of CAD, HTN, HLD, preDM, prostate CA came with 2 days of R eye prado spots, diagnosed with central retinal artery occlusion by office. Managed for CVA equivalent, found b/l carotid stenosis on initial CTA neck, however
it was not confirmed on follow up US carotids and repeated CTA neck next day as discussed with [facility]. Neurology suggested ASA,statin indefinetely, Plavix for 21 days and outpatient ophthalm and rheum follow up, as well as holter. Patient already
has established international trade analyst and whizzer operator and will schedule follow up appoitment with them. Rheumatology referral provided and rheumatolgist messaged with contact details of the patient. Patient verbalized understanding of the instructions.
Advised to monitor Ascending aortic aneurism with PCP. Medically stable for d/c
I have spent at least 39min reviewing chart, test results, communicating with consultants and direct patient care
Patient was managed for:
#R BRAO
#b/l carotid stenosis 2/2 ASCVD
#Ascending aortic aneurism 3.9cm
#CAD, stable
#PreDM
#Obesity
#RLS
Discharge Plan
-
Patient Disposition: Home (Routine Discharge)
Discharge Diagnosis/Procedures: R BRAO
Diet: Low Cholesterol
Activity: As tolerated
Driving Restrictions: As prior to admission
Activity Restrictions/Additional Instructions:
Schedule follow up appointment with international trade analyst upon D/C
Schedule appointment with your whizzer operator for Holter monitor
Referrals:
Ramirez Chowdhury DO [Consulting Staff] - in one to two weeks
Jeanne Patricio MD [Active] - in three to four weeks
Yolande Martinez MD [Family Provider] - in less than 1 week (Establish monitoring of your Ascending aortic aneurism 3.9cm)
Additional Discharge Medication Instructions: Continue Plavix for 20 days and then stop
Prescriptions:
New
atorvastatin 80 mg Tablet
80 mg PO QPM Qty: 30 0RF
clopidogrel 75 mg Tablet
75 mg PO DAILY Qty: 20 0RF
ferrous sulfate [FeroSul] 325 mg (65 mg iron) Tablet
325 mg PO DAILY Qty: 30 0RF
pramipexole 0.125 mg Tablet
0.125 mg PO DAILY Qty: 30 0RF
Continued
metoprolol succinate 50 mg tablet extended release 24 hr
50 mg PO QPM
bicalutamide 50 mg Tablet
50 mg PO QPM
therapeutic multivitamin Tablet
1 tab PO DAILY
dutasteride 0.5 mg Capsule
0.5 mg PO Q48H
tadalafil 5 mg Tablet
5 mg PO DAILY
Jardiance 10 mg Tablet
10 mg PO DAILY
Wegovy 0.5 mg/0.5 mL Pen Injector
0.5 mg SC SA
aspirin 81 mg tablet,chewable
81 mg PO DAILY
Discontinued
ferrous sulfate [Iron (ferrous sulfate)] 325 mg (65 mg iron) Tablet
325 mg PO Q48H
naproxen sodium [Aleve] 220 mg Tablet
220 mg PO DAILY
atorvastatin [Lipitor] 40 mg Tablet
40 mg PO QPM
omeprazole 20 mg Tablet,Delayed Release (Dr/Ec)
20 mg PO DAILY
Discharge Orders:
Discharge Patient (As Directed); Ordered 11/08/24
Ordered By: Desean Espinoza
Discharge Date and Time
Print Language: YORUBA
--- NOTE | 2024-11-08 15:40 | CM ---
DC home today no skilled dc needs identified. Spouse at bedside to provide transport home.
[2024-11-08 15:45] VITALS: BP 170/94
[2024-11-08 22:36] LABS: Transferrin 231 mg/dL (200-360)
== END 2024-11-08 17:04 | disposition home or self-care (01) | DRG 125 ==
LOC: 3 WEST ACU 16:19
PROVIDERS: Nurse Practitioner Family; Physician Assistant Medical; ADMITTING PHYSICIAN Hospitalist; ATTENDING PHYSICIAN Internal Medicine; CONSULT PHYSICIAN Psychiatry & Neurology Neurology; EMERGENCY PHYSICIAN Student in an Organized Health Care Education/Training Program; FAMILY PHYSICIAN Family Medicine; OTHER PHYSICIAN Surgery Vascular Surgery
DX: H34.231 Retinal artery branch occlusion, right eye (principal); H34.11 Central retinal artery occlusion, right eye; G25.81 Restless legs syndrome; I25.10 Atherosclerotic heart disease of native coronary artery without angina pectoris; D50.9 Iron deficiency anemia, unspecified; N40.0 Benign prostatic hyperplasia without lower urinary tract symptoms; E66.01 Morbid (severe) obesity due to excess calories; Z87.891 Personal history of nicotine dependence; Z68.37 Body mass index [BMI] 37.0-37.9, adult; Z79.02 Long term (current) use of antithrombotics/antiplatelets; Z79.82 Long term (current) use of aspirin; I65.23 Occlusion and stenosis of bilateral carotid arteries
CPT/HCPCS: 70450; 70496; 70498; 70551; 80048; 80061; 82728; 83036; 84443; 84466; 85025; 85027; 85652; 86140; 86803; 93005; 93306; 93880; 96374; 96375; 99285; Q9950; Q9967

== ENCOUNTER → 2024-12-15 13:32 | Outpatient (REF) | payer OTHER, MEDICARE, SELFPAY ==
[2024-12-15 14:53] LABS: PSA, Total - Diagnostic < 0.06 ng/ml (0.0-4.0)
== END ==
LOC: REG 13:32
PROVIDERS: ATTENDING PHYSICIAN Specialist; FAMILY PHYSICIAN Family Medicine
DX: C61 Malignant neoplasm of prostate (principal)
CPT/HCPCS: 36415; 84153

== ENCOUNTER → 2025-01-02 07:06 | Outpatient (REF) | payer OTHER, SELFPAY ==
[2025-01-02 07:53] LABS: % Basophils 0.9 % (0-2); % Eosinophils 2.2 % (0-6); % Immature Granulocytes 0.4 % (0-0.5); % Lymphocytes 20.8 % (20.5-51.1); % Monocytes 7.3 % (1.7-9.3); % Neutrophils 68.4 % (42.2-75.2); Absolute Basophils 0.1 10^3/uL (0-0.2); Absolute Eosinophils 0.2 10^3/uL (0-0.7); Absolute Lymphocytes 1.5 10^3/uL (1.2-3.4); Absolute Monocytes 0.5 10^3/uL (0.1-0.6); Hematocrit 41.1 % (39.0-52.0); Hemoglobin 13.3 g/dL (13.0-18.0); Mean Corp Hgb Conc. 32.4 g/dL (33.0-37.0); Mean Corpuscular Hgb 26.5 pg (27.0-31.0); Mean Platelet Volume 11.1 fL (7.4-10.4); Nucleated Red Blood Cells % 0 % (-); Platelet Count 216 10^3/uL (130-400); Red Blood Cell Count 5.01 10^6/uL (4.70-6.10); Red Cell Dist. Width 14.4 % (11.5-14.5); White Blood Cell Count 7.4 10^3/uL (4.8-10.8)
[2025-01-02 08:08] LABS: ALT (SGPT) 22 U/L (0-50); AST (SGOT) 26 U/L (17-59); Albumin 3.9 g/dl (3.5-5.0); Alkaline Phosphatase 101 U/L (38-126); Blood Urea Nitrogen 15 mg/dl (9-20); Calcium 9.5 mg/dl (8.4-10.2); Carbon Dioxide 25 mmol/L (22-30); Chloride 105 mmol/L (98-107); Glucose 105 mg/dl (70-99); Iron 66 ug/dl (49-181); Potassium 4.2 mmol/L (3.5-5.1); Sodium 139 mmol/L (135-145); Total Bilirubin 1.3 mg/dl (0.2-1.3); Total Protein 6.4 g/dl (6.3-8.2); eGFR > 60.00
[2025-01-02 08:42] LABS: Ferritin 10.6 ng/ml (17.9-464.0)
[2025-01-02 08:46] LABS: Glycohemoglobin (HgbA1c) 5.5 % (4.0-5.6)
== END ==
LOC: REG 07:06
PROVIDERS: ATTENDING PHYSICIAN Physician Assistant
DX: R73.03 Prediabetes (principal); R71.8 Other abnormality of red blood cells
CPT/HCPCS: 36415; 80053; 82728; 83036; 83540; 85025

== ENCOUNTER → 2025-02-27 09:13 | Outpatient (REF) | payer OTHER, SELFPAY ==
[2025-02-27 10:43] LABS: Albumin 4.1 g/dl (3.5-5.0); Blood Urea Nitrogen 16 mg/dl (9-20); Calcium 9.8 mg/dl (8.4-10.2); Carbon Dioxide 31 mmol/L (22-30); Chloride 106 mmol/L (98-107); Glucose 106 mg/dl (70-99); Phosphorus 3.8 mg/dl (2.5-4.5); Potassium 4.8 mmol/L (3.5-5.1); Sodium 142 mmol/L (135-145); eGFR > 60.00
== END ==
LOC: REG 09:13
PROVIDERS: ATTENDING PHYSICIAN Internal Medicine Cardiovascular Disease
DX: I25.10 Atherosclerotic heart disease of native coronary artery without angina pectoris (principal); I21.11 ST elevation (STEMI) myocardial infarction involving right coronary artery; I21.02 ST elevation (STEMI) myocardial infarction involving left anterior descending coronary artery; H34.9 Unspecified retinal vascular occlusion
CPT/HCPCS: 36415; 80069

== ENCOUNTER 2025-03-12 21:45 | Emergency (ER) | payer OTHER, SELFPAY ==
[2025-03-12 21:48] VITALS: BP 141/109
[2025-03-12 22:15] LABS: % Basophils 0.8 % (0-2); % Eosinophils 6.7 % (0-6); % Immature Granulocytes 0.3 % (0-0.5); % Lymphocytes 10.2 % (20.5-51.1); % Monocytes 9.1 % (1.7-9.3); % Neutrophils 72.9 % (42.2-75.2); Absolute Basophils 0.1 10^3/uL (0-0.2); Absolute Eosinophils 0.5 10^3/uL (0-0.7); Absolute Lymphocytes 0.8 10^3/uL (1.2-3.4); Absolute Monocytes 0.7 10^3/uL (0.1-0.6); Absolute Neutrophils 5.4 10^3/uL (1.4-6.5); Hematocrit 39.6 % (39.0-52.0); Hemoglobin 13.2 g/dL (13.0-18.0); Mean Corp Hgb Conc. 33.3 g/dL (33.0-37.0); Mean Corpuscular Hgb 26.9 pg (27.0-31.0); Mean Corpuscular Volume 80.7 fL (80.0-94.0); Mean Platelet Volume 10.3 fL (7.4-10.4); Nucleated Red Blood Cells % 0 % (-); Platelet Count 171 10^3/uL (130-400); Red Blood Cell Count 4.91 10^6/uL (4.70-6.10); Red Cell Dist. Width 15.2 % (11.5-14.5); White Blood Cell Count 7.3 10^3/uL (4.8-10.8)
[2025-03-12 22:28] LABS: ALT (SGPT) 27 U/L (0-50); AST (SGOT) 27 U/L (17-59); Alkaline Phosphatase 86 U/L (38-126); Blood Urea Nitrogen 21 mg/dl (9-20); Calcium 9.2 mg/dl (8.4-10.2); Carbon Dioxide 27 mmol/L (22-30); Chloride 106 mmol/L (98-107); Glucose 113 mg/dl (70-99); Potassium 3.7 mmol/L (3.5-5.1); Sodium 141 mmol/L (135-145); Total Bilirubin 0.8 mg/dl (0.2-1.3); Total Protein 6.5 g/dl (6.3-8.2); eGFR > 60.00
[2025-03-13 00:28] VITALS: BMI 37.6
--- NOTE | 2025-03-13 01:02 | ED.GENMED ---
History of Present Illness
General
Chief Complaint: Skin Problem
Source: patient and spouse
Exam Limitations: none
Time Seen by Provider: 03/13/25 00:06
Nursing documentation reviewed up to this point in time: agreed with
History of Present Illness
History of Present Illness:
65-year-old male past medical history of hypertension hyperlipidemia current prostate cancer receiving radiation treatment presenting to the emergency department today with concerns of itchy rash scattered throughout his lower extremities over the
past few days. Has been using topical steroids without complete relief though hide he has had some improvement though he had a new patch today. He also has been taking means. Seem to occur after gardening but he is unclear of any specific
exposure. Denies any chest pain shortness of breath nausea vomiting.
Past History
Past History
ED Past Medical History: Cancer, HTN, Hypercholesterolemia, MD and Other (BPH); Negative CAD
ED Past Surgical History: Appendectomy, Orthopedic and Urological
Social History
Tobacco: Non-smoker
Alcohol: Occasional
Drug: None
Personal:
Living: with family
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
Family History
Family History: Hypertension
Review of Systems
Review of Systems
Allergies reviewed?: Yes
All Other Systems: ROS reviewed and negative except as documented in HPI and ROS
Phy Exam
Physical Exam
Physical Exam:
GENERAL: Alert , in no apparent distress
EYE: pupils equal and reactive
NECK: Supple, no significant adenopathy.
ENT: o/p clr, mmm.
CARDIAC: Regular rate and rhythm .
LUNGS: Clear breath sounds bilaterally, no acute respiratory distress, no wheezes/rales/rhonchi
ABDOMEN: Soft, without focal tenderness, no r/g, no cvat
NEUROLOGICAL: Alert and oriented, no focal neuro deficits
SKIN: Discrete patches of redness with centralized vesicular changes blanchable multiple areas of the lower bilaterally. No tenderness to palpation no fluctuance or induration warm and dry, skin intact.
MUSCULOSKELETAL: No edema, well perfused.
PSYCH: Normal and appropriate interaction.
Course
Orders/Labs/Results
Orders:
Orders
03/12/25 22:01
Complete Blood Count/With Diff Urgent
Comprehensive Metabolic Panel Urgent
Abnormal Lab Results
03/12/25
22:01
MCH 26.9 L pg
(27.0-31.0)
RDW 15.2 H %
(11.5-14.5)
Absolute Lymphs (auto) 0.8 L 10^3/uL
(1.2-3.4)
Absolute Monos (auto) 0.7 H 10^3/uL
(0.1-0.6)
Lymphocytes % 10.2 L %
(20.5-51.1)
Eosinophils % 6.7 H %
(0-6)
BUN 21 H mg/dl
(9-20)
Glucose 113 H mg/dl
(70-99)
03/12/25 22:01
03/12/25 22:01
Vital Signs
Initial and Last Documented VS:
Initial Vital Signs
Temp Pulse Resp BP Pulse Ox
98.6 F 112 20 141/109 98
03/12/25 21:48 03/12/25 21:48 03/12/25 21:48 03/12/25 21:48 03/12/25 21:48
Last Documented Vital Signs
Temp Pulse Resp BP Pulse Ox
98.6 F 112 20 141/109 98
03/12/25 21:48 03/12/25 21:48 03/12/25 21:48 03/12/25 21:48 03/12/25 21:48
MDM/Problems Addressed
MDM/Problems Addressed:
65-year-old male presenting to the emergency department with concerns of scattered rash to lower extremities. These are itchy and do have scattered grouped vesicles to the area there is no tenderness not consistent with cellulitis does not appear
to be consistent with Webb-Roly syndrome or any emergent rash likely consistent with allergic type rash potentially delayed hypersensitivity reaction. Plan for symptomatic treatment otherwise close outpatient follow-up. Return precautions
given.
*Critical Care Note
Total Time (30-74mins, 75-104mins- exclusive of procedures): Not Applicable
ED Attending Note
-
Portions of this chart may have been created with voice recognition software.� Occasional wrong word or��sound alike� substitutions may have occurred due to the inherent limitations of voice recognition software.
Discharge Plan
Departure
Patient Disposition: Home (Routine Discharge)
Date of Disposition: 03/13/25
Time of Disposition: 01:02
Patient with high blood pressure during this ER visit?: No
Condition: Good
Covid-19: Not Applicable
Discharge Problem:
Rash
Instructions: Skin Rash (DC)
Prescriptions:
New
prednisone 20 mg tablet
40 mg PO DAILY 5 Days Qty: 10 0RF
No Action
metoprolol succinate 50 mg tablet extended release 24 hr
50 mg PO QPM
bicalutamide 50 mg Tablet
50 mg PO QPM
therapeutic multivitamin Tablet
1 tab PO DAILY
dutasteride 0.5 mg Capsule
0.5 mg PO Q48H
tadalafil 5 mg Tablet
5 mg PO DAILY
Jardiance 10 mg Tablet
10 mg PO DAILY
Wegovy 0.5 mg/0.5 mL Pen Injector
0.5 mg SC SA
aspirin 81 mg tablet,chewable
81 mg PO DAILY
atorvastatin 80 mg Tablet
80 mg PO QPM Qty: 30 0RF
clopidogrel 75 mg Tablet
75 mg PO DAILY Qty: 20 0RF
ferrous sulfate [FeroSul] 325 mg (65 mg iron) Tablet
325 mg PO DAILY Qty: 30 0RF
pramipexole 0.125 mg Tablet
0.125 mg PO DAILY Qty: 30 0RF
Referrals:
Yolande Martinez MD [Family Provider] -
Activity Restrictions/Additional Instructions:
You came to the emergency department today for concerns of a rash. This is consistent with an allergic hypersensitivity reaction. You can use topical steroids and antihistamine or oral steroids to help with symptoms. Please keep the area clean to
avoid secondary bacterial infections and follow-up with a study abroad advisor if you have further concerns. Return for any worsening, new or concerning symptoms.
Interventions
Interventions:
*Risk Screen - Suicide Last Done: 03/12/25 21:54
*General Assessment Last Done: 03/13/25 00:29
*Neglect/Abuse Screening Last Done: 03/12/25 21:54
*ED- Fall Risk Assessment Last Done: 03/12/25 21:56
*ED COVID-19 Vaccine History Last Done: 03/13/25 01:11
*Nursing Disposition Last Done: 03/13/25 01:11
ED-Skin Assessment Last Done: 03/13/25 00:29
Discharge Date and Time
Discharge Date/Time: 03/13/25 01:12
Print Language: [id number]
== END 2025-03-13 01:12 | disposition home or self-care (01) ==
LOC: EMR 21:45
PROVIDERS: Student in an Organized Health Care Education/Training Program; EMERGENCY PHYSICIAN Emergency Medicine; FAMILY PHYSICIAN Family Medicine
DX: R21 Rash and other nonspecific skin eruption (principal); L29.9 Pruritus, unspecified; M25.561 Pain in right knee; M79.662 Pain in left lower leg; I10 Essential (primary) hypertension; E78.00 Pure hypercholesterolemia, unspecified; C61 Malignant neoplasm of prostate; I25.2 Old myocardial infarction; N40.0 Benign prostatic hyperplasia without lower urinary tract symptoms
CPT/HCPCS: 99283; 80053; 85025

== ENCOUNTER → 2025-06-16 10:03 | Outpatient (REF) | payer OTHER, SELFPAY ==
[2025-06-16 12:29] LABS: PSA, Total - Diagnostic < 0.06 ng/ml (0.0-4.0)
== END ==
LOC: REG 10:03
PROVIDERS: ATTENDING PHYSICIAN Specialist; FAMILY PHYSICIAN Family Medicine
DX: C61 Malignant neoplasm of prostate (principal)
CPT/HCPCS: 36415; 84153

== ENCOUNTER → 2025-07-06 16:43 | Outpatient (REF) | payer OTHER, SELFPAY | LOC: REG 16:43 | PROVIDERS: ATTENDING PHYSICIAN Radiology Radiation Oncology; FAMILY PHYSICIAN Family Medicine | DX: C61 Malignant neoplasm of prostate (principal) | CPT/HCPCS: 36415; 84403 ==

== ENCOUNTER → 2025-08-15 07:03 | Outpatient (REF) | payer OTHER, SELFPAY | LOC: MRI 3T 07:03 | PROVIDERS: ATTENDING PHYSICIAN Physician Assistant | DX: M25.562 Pain in left knee (principal) | CPT/HCPCS: 73721 ==

== ENCOUNTER → 2025-08-29 07:16 | Outpatient (REF) | payer OTHER, SELFPAY ==
[2025-08-29 08:02] LABS: Hematocrit 41.0 % (39.0-52.0); Hemoglobin 13.0 g/dL (13.0-18.0); Mean Corp Hgb Conc. 31.7 g/dL (33.0-37.0); Mean Corpuscular Volume 80.7 fL (80.0-94.0); Nucleated Red Blood Cells % 0 % (-); Platelet Count 244 10^3/uL (130-400); Red Cell Dist. Width 14.3 % (11.5-14.5)
[2025-08-29 08:36] LABS: ALT (SGPT) 24 U/L (0-50); AST (SGOT) 27 U/L (17-59); Albumin 3.9 g/dl (3.5-5.0); Alkaline Phosphatase 111 U/L (38-126); Blood Urea Nitrogen 19 mg/dl (9-20); Calcium 9.3 mg/dl (8.4-10.2); Carbon Dioxide 27 mmol/L (22-30); Chloride 108 mmol/L (98-107); Glucose 111 mg/dl (70-99); HDL Cholesterol 45 mg/dl; LDL Cholesterol, Calculated 66 mg/dl; Potassium 4.3 mmol/L (3.5-5.1); Sodium 141 mmol/L (135-145); Total Protein 6.5 g/dl (6.3-8.2); Very Low Density Lipoprotein 18 mg/dl (0-30); eGFR > 60.00
[2025-08-29 12:20] LABS: Glycohemoglobin (HgbA1c) 6.1 % (4.0-5.6)
== END ==
LOC: REG 07:16
PROVIDERS: ATTENDING PHYSICIAN Family Medicine
DX: I10 Essential (primary) hypertension (principal); E78.5 Hyperlipidemia, unspecified; R73.03 Prediabetes; E66.01 Morbid (severe) obesity due to excess calories; D50.9 Iron deficiency anemia, unspecified
CPT/HCPCS: 36415; 80053; 80061; 83036; 85025

== ENCOUNTER 2025-11-02 06:22 | Day surgery (SDC) | payer OTHER, SELFPAY | END 2025-11-02 09:38 | disposition home or self-care (01) | LOC: GI 06:22 | PROVIDERS: ATTENDING PHYSICIAN Internal Medicine Gastroenterology | DX: D50.9 Iron deficiency anemia, unspecified (principal); K55.20 Angiodysplasia of colon without hemorrhage; K57.30 Diverticulosis of large intestine without perforation or abscess without bleeding; K62.7 Radiation proctitis; K64.8 Other hemorrhoids | CPT/HCPCS: 45378 ==